=== PATIENT | female | born 1990 | race Caucasian/White ===

== ENCOUNTER 2019-01-06 08:23 | Emergency (ER) | payer OTHER ==
[2019-01-06 08:26] VITALS: BP 118/79; PULSE 85; TEMP 99.1; BMI 30.1
--- NOTE | 2019-01-06 08:36 | PDOC ---
History of Present Illness - General Chief Complaint: Pain, Acute Stated Complaint: TOE PAIN Time Seen by Provider: 01/06/19 08:25 History Source: Patient Exam Limitations: No Limitations - History of Present Illness Initial Comments: 01/06/19 08:32 HPI 28 YOF with h/o UC on humira presenting with left great toe pain, redness, swelling and drainage x 2 days. went to urgent care yesterday, given analgesia and started on augmentin at that time; referred to the ED if further symptoms. she has since been cleaning the area with topical neosporin and cutting away at the cuticle of toe. 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 she had pedicure performed 2 weeks ago. no recent trauma or falls. Denies fever, chills, weakness, numbness tingling, leg swelling, Allergies: NSAIDS 2/2 UC and bleeding risk Past Medical History: as documented in EMR/HPI Social history: Lives with family. No tobacco, ETOH or drug use. Surgical history: C section 01/06/19 08:34 01/06/19 08:34 01/06/19 09:04 01/06/19 09:06 Past History - Past Medical History Allergies/Adverse Reactions: Allergies Allergy/AdvReac Type Severity Reaction Status Date / Time ibuprofen Allergy Verified 01/06/19 08:23 Home Medications: Ambulatory Orders Adalimumab [Humira] 0 mg SQ ASDIR 01/06/19 Control 0 mg PO DAILY 01/06/19 COPD: No Other medical history: UC - Suicide/Smoking/Psychosocial Hx Smoking History: Never smoked Hx Alcohol Use: No Drug/Substance Use Hx: No Review of Systems - Review of Systems Able to Perform ROS?: Yes Comments:: 01/06/19 08:34 Constitutional: no fevers or chills. MUSCULOSKELETAL: No joint pain and swelling. No muscle pain/arthralgias. Back: no back pain SKIN: +wound, redness, drainage, pain and swelling Hematologic: no easy bruising/bleeding. NEUROLOGIC: No weakness, numbness or tingling. Allergic/Immunologic: nsaid allergies All other systems reviewed and negative, or as documented in HPI. *Physical Exam - Vital Signs Last Vital Signs Temp Pulse Resp BP Pulse Ox 99.1 F 85 16 118/79 100 01/06/19 08:23 01/06/19 08:23 01/06/19 08:23 01/06/19 08:23 01/06/19 08:23 - Physical Exam Comments: 01/06/19 08:35 General: NAD, well appearing Vascular: 2+ DP pulses symmetric and equal. Back: no midline tenderness, no stepoffs, FROM MSK: notable for soft compartments, Cap refill <2 sec. Proximal and distal strength 5/5, - equal and symmetric. Plantar flexion and dorsiflexion 5/5. FROM. Sensation grossly intact to light touch. No calf tenderness. Neuro: alert, no focal neurologic deficits Skin: color normal color, warm and well perfused. Cap refill <2 sec. left great toe on outer aspect with erythema, significant tenderness, swelling at distal and prox nailbed, mild skin break down. FROM at the phalangeal joint, soft compartment. 01/06/19 09:05 Procedures - Additional Procedures Additional Procedures: other Progress: 01/06/19 09:12 Verbal consent was obtained. Left great toe Wound well approximated, +erythema, ingrown toenail noted. ingrown toenail in cuticle/nailbed completely removed in a sterile fashion. Patient tolerated procedure well, no complications. Patient advised to look for and return for any signs of infection such as redness, swelling, discharge, or worsening pain. *DC/Admit/Observation/Transfer Diagnosis at time of Disposition: Ingrown toenail with infection - Discharge Dispostion Disposition: HOME Condition at time of disposition: Stable Decision to Admit order: No - Referrals Referrals: Abeeb De La Fuente MD [Staff Physician] - Zohreh Buckley MD [Staff Physician] - Jocelyne Galan DPM [Staff Physician] - - Patient Instructions Printed Discharge Instructions: DI for Ingrown Toenail, DI for Wound Infection Additional Instructions: you had an ingrown toenail removed today you may also have an infection keep taking the augmentin x 1 week as prescribed tylenol as needed for pain topical antibiotics such as neosporin, daily washing and keep area clean and dry monitor for infection, such as fever, chills, redness, drainage, worsening pain , swelling and neurologic changes. podiatry followup provided for definitive measurement wear comfortable shoes - Post Discharge Activity
== END 2019-01-06 09:19 | disposition home or self-care (01) ==
LOC: FER 08:23
PROC: 0HDRXZZ Extraction of Toe Nail, External Approach (ICD-10-PCS; principal; 2019-01-06)
DX: L60.0 Ingrowing nail (principal); L08.9 Local infection of the skin and subcutaneous tissue, unspecified; K51.90 Ulcerative colitis, unspecified, without complications
CPT/HCPCS: 99281-25

== ENCOUNTER 2019-02-12 07:41 | Emergency (ER) | payer OTHER ==
--- NOTE | 2019-02-12 07:48 | PDOC ---
History of Present Illness - General Chief Complaint: Wound Stated Complaint: LEFT CHEECK WOUND Time Seen by Provider: 02/12/19 07:42 History Source: Patient Exam Limitations: No Limitations - History of Present Illness Initial Comments: 02/12/19 07:43 28 yo F here today c/o wound / abscess on left cheeck. states started several days ago, she tried to squeeze puz out of it, now it become swollen and painful. states she has not had any fevers but feels chilled. no other medical complaints. currently on Ludy for ulcerative colitis. Past History - Past Medical History Allergies/Adverse Reactions: Allergies Allergy/AdvReac Type Severity Reaction Status Date / Time ibuprofen AdvReac Severe Verified 02/12/19 07:42 Home Medications: Ambulatory Orders Adalimumab [Humira] 1 dose SQ ASDIR 01/06/19 Control 1 tab PO DAILY 01/06/19 Cephalexin [Keflex] 500 mg PO TID #21 capsule 02/12/19 Sulfamethoxazole/Trimethoprim [Bactrim Ds -] 1 tab PO BID #14 tablet 02/12/19 COPD: No - Suicide/Smoking/Psychosocial Hx Smoking History: Never smoked Hx Alcohol Use: No Drug/Substance Use Hx: No Review of Systems - Review of Systems Constitutional: Yes: Chills. No: Diaphoresis, Fever HEENTM: No: Eye Pain Respiratory: No: Cough, Orthopnea, Shortness of Breath Cardiac (ROS): No: Chest Pain, Edema Musculoskeletal: No: Back Pain, Gout, Joint Pain Integumentary: Yes: Other (wound '/ pimple) All Other Systems: Reviewed and Negative *Physical Exam - Physical Exam Comments: 02/12/19 07:44 awake alert lungs clear bilaterally heart rrr no mrg abd soft nt nd left cheeck with smll indurated area measuring 3 mm. no exudate. no expressable discharge. mild erythema surrounding 1 cm. Procedures - Incision and Drainage I&D Site: Left: Other (left cheeck) Betadine cleansed: No Volume(ml): 1 Blade Size: 11 Medical Decision Making - Medical Decision Making 02/12/19 07:45 28 yo F immunocompromised on ludy for UC, here with abscess/ pimple left cheek.will perform small I&D. warm compress. will start abx to treat. pt to be givin bactrim and kelfex twice daily. dc home. 02/12/19 07:48 I&D performed. expressed thick pus, tolerated well. dc on abx. *DC/Admit/Observation/Transfer Diagnosis at time of Disposition: Abscess - Discharge Dispostion Disposition: HOME Condition at time of disposition: Improved Decision to Admit order: No - Prescriptions Prescriptions: Cephalexin [Keflex] 500 mg PO TID #21 capsule Sulfamethoxazole/Trimethoprim [Bactrim Ds -] 1 tab PO BID #14 tablet - Referrals - Patient Instructions Printed Discharge Instructions: Acne (Alternative Therapy), Boil Additional Instructions: you should continue to wash your face daily with warm soap and water. take kelfex 500 mg three times daily x 7 days. you should also take bactrim one tab twice daily. return for any problems or concerns, fever, worsenign swelling. follow up with your regular doctor. return for evaluation in 2 - 3 days if it becomes more swollen, red or painful. - Post Discharge Activity
[2019-02-12 07:54] VITALS: BP 121/87; PULSE 85; TEMP 99; BMI 29.0
== END 2019-02-12 08:18 | disposition home or self-care (01) ==
LOC: FER 07:41
DX: L02.01 Cutaneous abscess of face (principal)
CPT/HCPCS: 99281-25

== ENCOUNTER 2019-07-20 08:28 | Emergency (ER) | payer OTHER ==
[2019-07-20 08:35] VITALS: BP 126/85; PULSE 90; TEMP 98.6; BMI 28.8
[2019-07-20] MEDS ORDERED: ALBUTEROL SO4 0.083% IH SOL 2.5 MG/3 ML VIAL.NEB. NEB ONE ×2 (08:55→09:17)
--- NOTE | 2019-07-20 09:02 | PDOC ---
History of Present Illness - General Chief Complaint: Cold Symptoms Stated Complaint: COUGH Time Seen by Provider: 07/20/19 08:30 - History of Present Illness Initial Comments: 07/20/19 09:00 29 F with h/o UC on humira presenting to ED with approx 1 week of cough. Pt reports dry cough during the daytime, with occasional phlegm production in the morning. Denies F/C. Denies CP/SOB. Denies any recent travel or sick contacts. Pt denies h/o asthma/COPD. Non-smoker. Has had one episode of wheezing in the past but does not use a nebulizer or albuterol pump regularly. Past History - Past Medical History Allergies/Adverse Reactions: Allergies Allergy/AdvReac Type Severity Reaction Status Date / Time ibuprofen AdvReac Severe Verified 07/20/19 08:28 Home Medications: Ambulatory Orders Adalimumab [Humira] 1 dose SQ ASDIR 01/06/19 Control 1 tab PO DAILY 01/06/19 Cephalexin [Keflex] 500 mg PO TID #21 capsule 02/12/19 Sulfamethoxazole/Trimethoprim [Bactrim Ds -] 1 tab PO BID #14 tablet 02/12/19 Azithromycin 250 mg PO DAILY #4 tablet 07/20/19 COPD: No - Psycho Social/Smoking Cessation Hx Smoking History: Never smoked Have you smoked in the past 12 months: No Hx Alcohol Use: No Drug/Substance Use Hx: No Review of Systems - Review of Systems Comments:: 07/20/19 09:01 "GENERAL/CONSTITUTIONAL: No fever or chills. No weakness. HEAD, EYES, EARS, NOSE AND THROAT: No change in vision. No ear pain or discharge. No sore throat. CARDIOVASCULAR: No chest pain, no shortness of breath, no loss of consciousness RESPIRATORY: + cough, no wheezing, or hemoptysis. GASTROINTESTINAL: No nausea, vomiting, diarrhea or constipation. GENITOURINARY: No dysuria, frequency, or change in urination. MUSCULOSKELETAL: No joint or muscle swelling or pain. No neck or back pain. SKIN: No rash NEUROLOGIC: No vertigo, no change in strength/sensation. ENDOCRINE: No increased thirst. No abnormal weight change. HEMATOLOGIC/LYMPHATIC: No anemia, easy bleeding, or history of blood clots. ALLERGIC/IMMUNOLOGIC: No hives or skin allergy. *Physical Exam - Vital Signs Last Vital Signs Temp Pulse Resp BP Pulse Ox 98.6 F 90 17 126/85 98 07/20/19 08:28 12 08:28 12 08:28 07/20/19 08:28 07/20/19 08:28 - Physical Exam 07/20/19 09:02 "GENERAL: Awake, alert, and fully oriented, in no acute distress. HEAD: No signs of trauma EYES: PERRLA, EOMI, sclera anicteric, conjunctiva clear ENT: Auricles normal inspection, hearing grossly normal, nares patent, oropharynx clear without exudates. Moist mucosa NECK: Nontender, no stepoffs, Normal ROM, supple, no lymphadenopathy, JVD, or masses LUNGS: Breath sounds equal, clear to auscultation bilaterally. No wheezes, and no crackles HEART: Regular rate and rhythm, normal S1 and S2, no murmurs, rubs or gallops ABDOMEN: Soft, nontender, normoactive bowel sounds. No guarding, no rebound. No masses EXTREMITIES: Normal range of motion, no edema. No clubbing or cyanosis. No cords, erythema, or tenderness NEUROLOGICAL: Cranial nerves II through XII intact. 5/5 strength and sensation in all extremities, Normal speech, normal gait, normal cerebellar function SKIN: Warm, Dry, normal turgor, no rashes or lesions noted. ED Treatment Course - RADIOLOGY Radiology Studies Ordered: Category Date Time Status CHEST PA & LAT [RAD] Stat Radiology 07/20/19 08:55 Ordered Medical Decision Making - Medical Decision Making 07/20/19 09:02 29 F with cough x 1 week. Lungs clear without wheezing. Suspect viral URI vs bronchitis. - CXR - Trial of nebs 07/20/19 09:39 CXR clear Given duration of pt's symptoms, will send Z pack to pharmacy for possible atypical PNA Pt is well appearing, with normal vitals. Clinically stable for DC at this time. I discussed the physical exam findings, ancillary test results and final diagnoses with the patient. I answered all of the patient's questions. The patient was satisfied with the care received and felt comfortable with the discharge plan and treatment plan. The patient agrees to follow up with the primary care physician within 24-72 hours. Discharge - Discharge Information Problems reviewed: Yes Clinical Impression/Diagnosis: Cough, Sinus congestion, Phlegm in throat Condition: Stable Disposition: HOME - Additional Discharge Information Prescriptions: Azithromycin 250 mg PO DAILY #4 tablet - Follow up/Referral - Patient Discharge Instructions Patient Printed Discharge Instructions: DI for Acute Bronchitis Additional Instructions: Take the azithromycin as prescribed starting tomorrow. If you experience worsening cough, chest pain, shortness of breath, fevers, or any other concerning symptoms, return to the ER immediately. Otherwise, follow up with your primary doctor within 1 week for re-evaluation. - Post Discharge Activity
[2019-07-20] MEDS ORDERED: AZITHROMYCIN 250 MG TABLET PO ONE (09:53)
[2019-07-20] MEDS ORDERED: AZITHROMYCIN 500 MG TABLET ONE (09:56)
== END 2019-07-20 09:58 | disposition home or self-care (01) ==
LOC: FER 08:28
PROC: 3E0F7GC Introduction of Other Therapeutic Substance into Respiratory Tract, Via Natural or Artificial Opening (ICD-10-PCS; principal; 2019-07-20)
DX: R05 Cough (principal); R09.81 Nasal congestion; R09.3 Abnormal sputum; Z88.8 Allergy status to other drugs, medicaments and biological substances
CPT/HCPCS: 71046-TC-FY; 99281-25

== ENCOUNTER 2023-12-03 19:58 | Emergency (ER) | payer OTHER ==
[2023-12-03 20:14] VITALS: BP 124/86; PULSE 70; RESP 16; TEMP 99.3; BMI 31.3
[2023-12-03] MEDS ORDERED: TOBRA 0.3%/DEXAMETH 0.1% OPHTHALMIC SUSP 2.5 ML BTL ONE (20:26)
[2023-12-03] MEDS ORDERED: TOBRA 0.3%/DEXAMETH 0.1% OPHTHALMIC SUSP 2.5 ML BTL OD SCH (22:00)
== END 2023-12-03 20:37 | disposition home or self-care (01) ==
LOC: FER 19:58
DX: H53.141 Visual discomfort, right eye (principal)
CPT/HCPCS: 99283-25